=== PATIENT | male | born 1990 | race African-American/Black ===

== ENCOUNTER 2018-07-05 18:25 | Emergency (ER) | payer OTHER ==
[~2018-07-05] VITALS: Ht 185.4 cm; Wt 70.3 kg
[2018-07-05] MEDS ORDERED: PENICILLIN V P500 MG PO (19:35)
[2018-07-05 20:35] VITALS: BP 108/71
== END 2018-07-05 20:37 | disposition home or self-care (01) ==
LOC: ER 18:25
DX: J02.0 Streptococcal pharyngitis (principal)